=== PATIENT | female | born 1985 | race Caucasian/White ===

== ENCOUNTER 2019-03-08 15:08 | Emergency (ER) | payer BC ==
[2019-03-08 16:18] LABS: Absolute Lymphocytes (CBC) 1.9 K/uL (0.7-4.9); Basophils % 0.7 % (0-1.3); Hematocrit 39.3 % (36.0-45.0); Lymphocytes % 25.4 % (15.3-44.8); MPV 7.6 fL (7.6-11.3); RBC Red Blood Cell Count 4.23 M/uL (3.86-4.86)
--- NOTE | 2019-03-08 16:31 | EKG ---
Test Date: 2019-03-08 Test Time: 15:25:48 Hub Borer: VEGA MEASUREMENT RESULTS: Intervals: Rate: 98 WI: 146 QRSD: 82 QT: 326 QTc: 416 Wainwright: P: 39 WI: 146 QRS: 62 T: 34 INTERPRETIVE STATEMENTS: Normal sinus rhythm normal ECG No previous ECG available for comparison Electronically Signed On 03-08-19 16:31:14 CDT by Nikolas Barksdale
[2019-03-08 16:44] LABS: Protime INR 0.96
[2019-03-08 16:50] LABS: T3 Free 2.61 pg/mL (2.18-3.98); Thyroid Stimulating Hormone 1.75 uIU/mL (0.360-3.740)
[2019-03-08 16:53] LABS: ALT/SGPT 17 U/L (12-78); AST/SGOT 13 U/L (15-37); Albumin 3.8 g/dL (3.4-5.0); Alkaline Phosphatase 64 U/L (45-117); BUN Blood Urea Nitrogen 15 mg/dL (7-18); Bicarbonate 22 mmol/L (21-32); Bilirubin Direct 0.1 mg/dL (0-0.2); Bilirubin Total 0.1 mg/dL (0.2-1.0); Glucose Level 86 mg/dL (74-106); Magnesium 1.9 mg/dL (1.8-2.4); NT PRO-BNP 8 pg/mL (<125); Potassium 3.9 mmol/L (3.5-5.1); Protein, Total 7.3 g/dL (6.4-8.2); Sodium Level 139 mmol/L (136-145); Troponin (Emerg Dept Use Only) < 0.02 ng/mL (0.0-0.045)
--- NOTE | 2019-03-08 16:59 | RAD REPORT ---
EXAM DESCRIPTION: RAD - Chest Single View - 03/08/2019 4:04 pm CLINICAL HISTORY: Chest pain COMPARISON: None. TECHNIQUE: AP portable chest image was obtained 1553 hours . FINDINGS: Lungs are clear. Heart and vasculature are normal. No measurable pleural effusion and no p neumothorax. No acute bony abnormality seen. No acute aortic findings suspected. IMPRESSION: No acute cardiopulmonary process.
[2019-03-08] MEDS ORDERED: ONDANSETRON 4 MG/2 ML VIAL ONE (17:01)
[2019-03-08] MEDS ORDERED: NA CHLORIDE 0.9% 1,000 ML ONE (17:01)
--- NOTE | 2019-03-08 18:04 | ER ---
Nurse's Notes [facility] Name: Cece Clark Age: 33 yrs Sex: Female : 1985 Arrival Date: 03/08/2019 Time: 15:09 Bed 8 Private MD: Shmuel Aleman Diagnosis: Palpitations;Other chest pain Presentation: 03/08 15:22 Presenting complaint: Patient states: Chest pain for the past 2 weeks, while driving it ch struck me out of no where. I feel my heart racing and it seems pounding in my chest. Transition of care: patient was not received from another setting of care. Onset of symptoms was March 08, 2019 at 14:50. Risk Assessment: Do you want to hurt yourself or someone else? Patient reports no desire to harm self or others. Initial Sepsis Screen: Does the patient meet any 2 criteria? No. Patient's initial sepsis screen is negative. Does the patient have a suspected source of infection? No. Patient's initial sepsis screen is negative. Care prior to arrival: None. 15:22 Method Of Arrival: Ambulatory 15:22 Acuity: KARLA 3 Triage Assessment: 15:24 General: Appears in no apparent distress. comfortable, Behavior is cooperative, ch appropriate for age, anxious. Pain: Complains of pain in chest Pain currently is 0 out of 10 on a pain scale. Cardiovascular: Reports lightheadedness, palpitations, shortness of breath. 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 - Social history:: Smoking status: Patient/guardian denies using tobacco, Patient uses alcohol, occasionally. - Ebola Screening: : Patient negative for fever greater than or equal to 101.5 degrees Fahrenheit, and additional compatible Ebola Virus Disease symptoms Patient denies exposure to infectious person Patient denies travel to an Ebola-affected area in the 21 days before illness onset No symptoms or risks identified at this time. Screenin:35 Abuse screen: Denies threats or abuse. Nutritional screening: No deficits noted. aa5 Tuberculosis screening: No symptoms or risk factors identified. Fall Risk None identified. Assessment: 15:32 General: Appears uncomfortable, Behavior is calm, cooperative. Pain: Complains of pain aa5 in mid-sternal area Pain does not radiate. Pain currently is 8 out of 10 on a pain scale. Quality of pain is described as pressure, Pain began 2 weeks ago Is continuous. Neuro: Level of Consciousness is awake, alert, obeys commands, Oriented to person, place, time, situation. Cardiovascular: Reports chest pain, palpitations, Heart tones S1 S2 present Rhythm is regular. Respiratory: Airway is patent Respiratory effort is even, unlabored, Respiratory pattern is regular, symmetrical, Breath sounds are clear bilaterally. Denies cough, shortness of breath. GI: Patient currently denies nausea, vomiting. : No signs and/or symptoms were reported regarding the genitourinary system. EENT: No signs and/or symptoms were reported regarding the EENT system. Derm: Skin is pink, warm \T\ dry. Musculoskeletal: Range of motion: intact in all extremities. 16:30 Reassessment: Patient is alert, oriented x 3, equal unlabored respirations, skin aa5 warm/dry/pink. Patient denies pain at this time. 18:00 Reassessment: Patient is alert, oriented x 3, equal unlabored respirations, skin aa5 warm/dry/pink. Vital Signs: 15:24 BP 128 / 91; Pulse 99; Resp 16; Temp 98.1; Pulse Ox 97% on R/A; Weight 77.11 kg; Height 5 ft. 3 in. (160.02 cm); Pain 0/10; 17:30 BP 120 / 84; Pulse 88; Resp 18 S; Pulse Ox 98% on R/A; Pain 0/10; aa5 15:24 Body Mass Index 30.11 (77.11 kg, 160.02 cm) ED Course: 15:09 Patient arrived in ED. am2 15:10 Shmuel Aleman MD is Private Physician. am2 15:23 Triage completed. 15:24 Arm band placed on left wrist. Patient placed in an exam room, on a stretcher. 15:26 EKG completed in triage. Results shown to MD. 15:30 Radha Schneider, RN is Primary Nurse. aa5 15:31 EKG done, by tomography technologist. reviewed by Andrade Moe MD. 3 15:32 Patient has correct armband on for positive identification. Bed in low position. Call aa5 light in reach. Side rails up X2. 15:32 virology teacher on. Pulse ox on. NIBP on. aa5 15:32 No provider procedures requiring assistance completed. Patient maintains SpO2 aa5 saturation greater than 95% on room air. 15:34 Jimbo Ponce PA is PHCP. cp 15:34 Andrade Moe MD is Attending Physician. cp 15:53 XRAY Chest (1 view) In Process Unspecified. EDMS 17:48 Holter monitor placed. Instructions were given. 3 18:01 Nikolas Barksdale MD is Referral Physician. cp 18:30 IV discontinued, intact, bleeding controlled, No redness/swelling at site. Pressure aa5 dressing applied. Administered Medications: 17:04 Drug: Zofran 4 mg Route: IVP; Site: right antecubital; hb 17:10 Follow up: Response: No adverse reaction aa5 17:05 Drug: NS 0.9% 1000 ml Route: IV; Rate: 1 bolus; Site: right antecubital; hb 18:00 Follow up: IV Status: Completed infusion; IV Intake: 1000ml aa5 Intake: 18:00 IV: 1000ml; Total: 1000ml. aa5 Outcome: 18:03 Discharge ordered by MD. cp 18:30 Discharged to home ambulatory, with significant other. aa5 18:30 Condition: stable 18:30 Discharge instructions given to patient, with Holter monitor Instructed on discharge instructions, follow up and referral plans. Demonstrated understanding of instructions, follow-up care. 18:38 Patient left the ED. aa5 Signatures: Dispatcher [employer] EDMS Rosa Barr RN RN Radha Schneider RN RN aa5 Jimbo Ponce PA PA cp Baxter, Heather, RN RN Naa Rosas am Sonia Valdovinos 3 Corrections: (The following items were deleted from the chart) 17:06 15:32 Cardiovascular: Heart tones S1 S2 present Rhythm is regular aa5 aa5
--- NOTE | 2019-03-08 18:04 | EDPHYS ---
Physician Documentation [facility] Name: Cece Clark Age: 33 yrs Sex: Female : 1985 Arrival Date: 03/08/2019 Time: 15:09 Bed 8 Private MD: Shmuel Aleman ED Physician Andrade Moe HPI: 03/08 15:59 This 33 yrs old Female presents to ER via Ambulatory with complaints of Chest cp Pain. 16:00 The patient or guardian reports chest pain that is located primarily in the anterior cp chest wall. 16:00 The pain radiates to both arms. Associated signs and symptoms: Pertinent positives: cp dizziness, palpitations, shortness of breath, blurry vision today, Pertinent negatives: abdominal pain, cough, lower extremity pain, lower extremity swelling, recent travel, syncope, vomiting. The chest pain is described as sharp. Duration: The patient or guardian reports multiple episodes, that are intermittent, with no pattern. Severity of pain: in the emergency department the pain has improved moderately. 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 - Social history:: Smoking status: Patient/guardian denies using tobacco, Patient uses alcohol, occasionally. - Ebola Screening: : Patient negative for fever greater than or equal to 101.5 degrees Fahrenheit, and additional compatible Ebola Virus Disease symptoms Patient denies exposure to infectious person Patient denies travel to an Ebola-affected area in the 21 days before illness onset No symptoms or risks identified at this time. ROS: 16:00 Eyes: Negative for injury, pain, redness, and discharge. cp 16:00 Constitutional: Negative for body aches, chills, fever, poor PO intake. 16:00 ENT: Negative for drainage from ear(s), ear pain, sore throat, difficulty swallowing, difficulty handling secretions. 16:00 Cardiovascular: Positive for chest pain, palpitations, Negative for edema. 16:00 Respiratory: Positive for shortness of breath, Negative for cough, wheezing. 16:00 Abdomen/GI: Negative for abdominal pain, nausea, vomiting, and diarrhea, constipation, black/tarry stool, rectal bleeding. 16:00 Back: Negative for pain at rest, pain with movement, radiated pain. 16:00 : Negative for urinary symptoms, vaginal bleeding, vaginal discharge. 16:00 Skin: Negative for rash. 16:00 Neuro: Positive for dizziness, Negative for altered mental status, headache, syncope, near syncope, weakness. 16:00 All other systems are negative. Exam: 16:00 ECG was reviewed by the Attending Physician. cp 16:10 Constitutional: The patient appears in no acute distress, alert, awake, comfortable, cp non-diaphoretic, non-toxic, well developed, well nourished. 16:10 Head/Face: Normocephalic, atraumatic. cp 16:10 Eyes: Periorbital structures: appear normal, Conjunctiva: normal, no exudate, no injection, Sclera: no appreciated abnormality, Lids and lashes: appear normal, bilaterally. 16:10 ENT: External ear(s): are unremarkable, Nose: is normal, Mouth: Lips: moist, Oral mucosa: pink and intact, moist, Posterior pharynx: is normal, airway is patent, no erythema, no exudate. 16:10 Chest/axilla: Inspection: normal, Palpation: is normal, no crepitus, no tenderness. 16:10 Cardiovascular: Rate: normal, Rhythm: regular. 16:10 Respiratory: the patient does not display signs of respiratory distress, Respirations: normal, no use of accessory muscles, no retractions, no splinting, no tachypnea, labored breathing, is not present, Breath sounds: are clear throughout, no decreased breath sounds, no stridor, no wheezing. 16:10 Abdomen/GI: Inspection: abdomen appears normal, Bowel sounds: active, all quadrants, Palpation: abdomen is soft and non-tender, in all quadrants, rebound tenderness, is not appreciated, voluntary guarding, is not appreciated, involuntary guarding, is not appreciated. 16:10 Back: pain, is absent, ROM is normal. 16:10 Skin: no rash present. 16:10 Neuro: Orientation: to person, place \T\ time. Mentation: is normal, Cerebellar function: is grossly normal, Motor: moves all fours, strength is normal. Vital Signs: 15:24 BP 128 / 91; Pulse 99; Resp 16; Temp 98.1; Pulse Ox 97% on R/A; Weight 77.11 kg; Height ch 5 ft. 3 in. (160.02 cm); Pain 0/10; 17:30 BP 120 / 84; Pulse 88; Resp 18 S; Pulse Ox 98% on R/A; Pain 0/10; aa5 15:24 Body Mass Index 30.11 (77.11 kg, 160.02 cm) MDM: 15:34 Patient medically screened. cp 16:00 Differential diagnosis: abnormal EKG, acute pericarditis, chest wall pain, cp costochondritis, esophagitis, gastritis, pleurisy, pneumonia, pneumothorax, pulmonary embolus. 18:02 Data reviewed: vital signs, nurses notes, lab test result(s), EKG, radiologic studies, cp plain films. 18:02 Test interpretation: by ED physician or midlevel provider: ECG, plain radiologic cp studies. 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 Response to treatment: the patient's symptoms have markedly improved after treatment, and as a result, I will discharge patient. Special discussion: Based on the patient's history, exam, and Dx evaluation, there is no indication for emergent intervention or inpatient Tx. It is understood by the patient/guardian that if the Sx's persist or worsen they need to return immediately for re-evaluation. 03/08 15:48 Order name: Basic Metabolic Panel; Complete Time: 17:00 cp 03/08 17:00 Interpretation: Normal except: GFR 72. cp 03/08 15:48 Order name: CBC with Diff; Complete Time: 17:00 cp 03/08 15:48 Order name: LFT's; Complete Time: 17:00 cp 03/08 17:01 Interpretation: Normal except: AST 13; BILIT 0.1. cp 03/08 15:48 Order name: Magnesium; Complete Time: 17:00 cp 03/08 15:48 Order name: NT PRO-BNP; Complete Time: 17:00 cp 03/08 15:48 Order name: PT-INR; Complete Time: 17:00 cp 03/08 15:48 Order name: Troponin (emerg Dept Use Only); Complete Time: 17:00 cp 03/08 15:48 Order name: XRAY Chest (1 view); Complete Time: 17:18 cp 03/08 17:18 Interpretation: Report review. 03/08 15:48 Order name: D-Dimer; Complete Time: 17:00 cp 03/08 15:59 Order name: TSH; Complete Time: 17:00 cp 03/08 15:59 Order name: T3 Free; Complete Time: 17:00 cp 03/08 17:58 Order name: Urine Dipstick--Ancillary (enter results) 03/08 17:58 Order name: Urine --Ancillary (enter results) 03/08 15:48 Order name: EKG; Complete Time: 15:49 cp 03/08 15:48 Order name: Cardiac monitoring; Complete Time: 16:05 cp 03/08 15:48 Order name: EKG - Nurse/Tech; Complete Time: 16:05 cp 03/08 15:48 Order name: IV Saline Lock; Complete Time: 16:06 cp 03/08 15:48 Order name: Labs collected and sent; Complete Time: 16:06 cp 03/08 15:48 Order name: O2 Per Protocol; Complete Time: 16:06 cp 03/08 15:48 Order name: O2 Sat Monitoring; Complete Time: 16:06 cp 03/08 15:48 Order name: Urine Dipstick-Ancillary (obtain specimen); Complete Time: 18:32 cp 03/08 15:48 Order name: Urine Test (obtain specimen); Complete Time: 18:32 cp 03/08 17:22 Order name: Holter Monitor (ORDER); Complete Time: 17:22 cp EC:00 Rate is 98 beats/min. Rhythm is regular. PA interval is normal. QRS interval is normal. cp QT interval is normal. Interpreted by me. Reviewed by me. Administered Medications: 17:04 Drug: Zofran 4 mg Route: IVP; Site: right antecubital; hb 17:10 Follow up: Response: No adverse reaction aa5 17:05 Drug: NS 0.9% 1000 ml Route: IV; Rate: 1 bolus; Site: right antecubital; hb 18:00 Follow up: IV Status: Completed infusion; IV Intake: 1000ml aa5 Disposition: 03/09 07:44 Co-signature as Attending Physician, Andrade Moe MD. Disposition: 03/08/19 18:03 Discharged to Home. Impression: Palpitations, Other chest pain. - Condition is Stable. - Discharge Instructions: Nonspecific Chest Pain, Holter Monitoring, Palpitations. - Medication Reconciliation Form, Thank You Letter, Antibiotic Education, Prescription Opioid Use form. - Follow up: Nikolas Barksdale MD; When: 2 - 3 days; Reason: Recheck today's complaints. - Problem is new. - Symptoms have improved. Signatures: Dispatcher [employer] EDRosa Rodriguez RN RN Radha Schneider RN RN aa5 Jimbo Ponce PA PA cp Baxter, Heather, RN RN hb Starr, MD ANTONIO Zafar Corrections: (The following items were deleted from the chart) 03/08 16:42 16:40 ECG was reviewed by the Attending Physician. cp cp 18:38 18:03 03/08/2019 18:03 Discharged to Home. Impression: Palpitations; Other chest pain. aa5 Condition is Stable. Forms are Medication Reconciliation Form, Thank You Letter, Antibiotic Education, Prescription Opioid Use. Follow up: Nikolas Barksdale; When: 2 - 3 days; Reason: Recheck today's complaints. Problem is new. Symptoms have improved. cp
[2019-03-08 18:06] LABS: Urine Blood NEGATIVE (NEG); Urine Glucose NEGATIVE (NEG); Urine Protein NEGATIVE (NEG); Urine pH 5.5 (5.0-7.0)
[2019-03-08 19:30] VITALS: BP 128/91; TEMP 98.1; O2SAT 97
--- NOTE | 2019-03-12 16:42 | HM ---
Indications : Palpitations Diary Notations : Referring MD : Shmuel Heart Medications: Levothyroxine Reading MD : Nikolas Barksdale : Summary Report Test Date : 03/08/19 Start Time : 5:17:24 PM Total Beats : [id number] Hours Analyzed : 23:55:36 Unknown Beats : 0 Scan Date : 03/12/19 Artifact : 0:21:04 Other Beats : 0 Percent AFIB : 0.00% Rate Dependent Events Heart Rates Min : 63 BPM at 6:18:00 AM -2 Bradycardia Runs: 0 Pauses : 0 Max : 124 BPM at 9:43:00 AM -2 Longest : 0 beats at Longest : 0.0 secs Avg : 85 BPM Min rate : 0 BPM at at Ventricular Events Supraventricular Events Total Beats : 0 Couplets : 0 Total Beats : 1 Couplets : 0 Triplets : 0 Bigeminy Runs : 0 VTach Runs : 0 SVTach Runs : 0 Longest : 0 beats at Longest : 0 beats at Max Rate ; 0 BPM Max Rate : 0 BPM at Impressions and Findings 12 Lead ECG: Normal Holter: 24 Hours showed sinus rhythm 63-124 beats per minute with no pauses. There is no ventricular ectopy A single premature atrial complex noted. No ventricular tachycardia, supraventricular tachycardia or atrial fibrillation.
== END 2019-03-08 18:38 | disposition home or self-care (01) ==
LOC: ER 15:08
DX: R00.2 Palpitations (principal); E03.9 Hypothyroidism, unspecified; Z72.0 Tobacco use
CPT/HCPCS: 96361; 93225; 93226; 93005; 85025; 80048; 36415; 83735; 81025; 85610; 85379; 80076; 84443; 81003; 84484; 84481; 83880; 71045; 96374; 99285; J7030; J2405

== ENCOUNTER 2023-06-09 10:13 | Day surgery (SDC) | payer BC ==
[2023-06-07 13:32] LABS: Specific Gravity 1.006 (1.005-1.030); Urine Bacteria <20 /HPF (<20); Urine Bilirubin NEGATIVE (Negative); Urine Blood Negative (Negative); Urine Clarity Clear (Clear); Urine Color Colorless (Yellow); Urine Glucose NEGATIVE (Negative); Urine Protein NEGATIVE (Negative); Urine RBC <5 /HPF (None Seen); Urine Urobilinogen Normal (Normal); Urine pH 6.5 (5.0-7.0)
[2023-06-07 13:33] LABS: Absolute Lymphocytes (CBC) 1.6 K/uL (0.7-4.9); Hematocrit 38.5 % (36.0-45.0); Lymphocytes % 23.4 % (15.3-44.8); Platelets 373 thou/uL (152-406); RBC Red Blood Cell Count 4.32 M/uL (3.86-4.86)
[2023-06-09] MEDS ORDERED: SCOPOLAMINE HYDROBROMIDE PATCH TD ONE ×2 (10:30→10:32)
[2023-06-09] MEDS ORDERED: CEFAZOLIN SODIUM 2 GM/VIAL ONE (10:30)
[2023-06-09] MEDS ORDERED: Ringers Lactate 1,000 ML IV ONE ×2 (10:32→11:55)
[2023-06-09] MEDS ORDERED: FENTANYL CITR 100 MCG/2 ML ONE ×2 (10:43→11:41)
[2023-06-09] MEDS ORDERED: LIDOCAINE 2% MPF 5 ML VIAL ONE (10:43)
[2023-06-09] MEDS ORDERED: MIDAZOLAM HCL 2 MG/2 ML INJ ONE (10:43)
[2023-06-09] MEDS ORDERED: NEOSTIGMINE 1 MG/ML -10 ML VIAL ONE (10:43)
[2023-06-09] MEDS ORDERED: propofoL 200 MG/20 ML VIAL IV ONE (10:43)
[2023-06-09] MEDS ORDERED: ROCURONIUM 50 MG/5 ML VIAL IV ONE (10:43)
[2023-06-09] MEDS ORDERED: GLYCOPYRROLATE 0.2 MG/ML SYR ONE (10:43)
[2023-06-09] MEDS ORDERED: ONDANSETRON 4 MG/2 ML VIAL ONE (10:43)
[2023-06-09] MEDS: BUPIVACAINE 0.25% PF 30 ML VIAL ONE ×2 (11:12→11:38)
[2023-06-09] MEDS ORDERED: METHYLENE BLUE 1% 10 ML VIAL ONE (11:30)
[2023-06-09] MEDS ORDERED: MEPERIDINE HCL 25 MG/ML SYR ONE (12:38)
[2023-06-09] MEDS ORDERED: KETOROLAC 30 MG/ML INJ ONE (12:38)
[2023-06-09] MEDS ORDERED: Mastisol Adhesive Liq ONE (12:38)
[2023-06-09] MEDS ORDERED: HYDROMORPHONE HCL 1 MG/ML INJ ONE (13:00)
[2023-06-09 13:10] VITALS: TEMP 97.1
[2023-06-09] MEDS ORDERED: HYDROCODONE/APAP 5/325 MG TAB ONE (14:00)
[2023-06-09 14:50] VITALS: BP 141/84; O2SAT 99
--- NOTE | 2023-06-10 21:29 | OP ---
Date of Procedure: 06/09/2023 Surgeon: Natividad Macias MD Lead Performance Support Analyst: Poornima Pitt. Preoperative Diagnoses: Menorrhagia (AUB-O), dysmenorrhea, possible endometriosis, and female infert ility. She has one child who is 6 years old. Postoperative Diagnoses: Menorrhagia (AUB-O), dysmenorrhea, no endometriosis, and female infertility . She has one child who is 6 years old. 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 Procedures Performed: Diagnostic laparoscopy, chromotubation, right salpingolysis and catheterizatio n of the tube using an intraoperative cholangiogram catheter. Anesthesia: General endotracheal. Specimens: None. Complications: None. Drains: None. Findings: Uterus anteflexed, the left tube spontaneously filled and spilled, the right tube had dist al tortuous dilation and on chromotubation, there was fill into this area but no spill from the fimbr iated end that was clamped. The occlusion was relieved using scissors and the catheter was able to b e inserted without any problems to at least the mid part of the tube. Patient Condition: Stable. Description Of Procedure: After informed consent was verified, she was taken back to the OR, placed in supine fashion on the operating table. General anesthesia was given. She was placed in a dorsal lithotomy position with arms tucked by the side. Positioning checked. SCDs started. Time-out done. Abdomen prepped with ChloraPrep, vulva, vagina, and perineum with Betadine. Speculum placed to exp ose the cervix. Anterior lip grasped with a single-tooth tenaculum and a uterine manipulator introdu bibiana and fixed in place. The bulb on the manipulator was inflated with air to 10 mL. The occluder wa s placed in a position of the cervix so as to be able to retrograde fill without significant spillage . After Villalpando catheter was inserted, this was attached to wound drainage bag and left to gravity. This area was then draped and laparoscopic part was started. A curvilinear infraumbilical incision was m jessica with a scalpel after injecting 0.25% bupivacaine. Fascia was incised, tagged with 0 Vicryl sutur es. Peritoneum entered sharply. S-retractors were placed after the Darren was introduced and adequa te insufflation was obtained. A 10 mm 30 degree lens was used to enter, checked the point of entry, which was unremarkable. Upper abdominal surface was unremarkable. Her appendix was normal as well. The patient was placed in Trendelenburg position and pelvic organs were examined. No evidence of an y endometriosis. However, distal right tube and distal 1/3rd appeared to have a tortuous appearance suspicious for a hydrosalpinx. A 5 suprapubic and another 5 left lower quadrant ports were placed under direct vision after the anton ent was placed in significant Trendelenburg for my surgery. Chromotubation was the next procedure. Chromotubation was performed through the uterine manipulator canal. One ampule of both methylene robin e diluted with 200 mL of normal saline was injected with a quick fill and spill of the left tube. On the right side, there was a fill into the proximal 2/3rds, but there was no spill from the fimbriate d end. On close examination, there was clubbing here. The fimbriated end was picked up with the help of a M brandenburg centerand grasper and using scissors, the fimbriae were released. Then, I was able to insert a cholang iogram catheter 2/[address] in, that slid in easily. Then, went ahead and repeated the chromotuba tion without much success despite occlusion of the contralateral tubes with no spill on the sides. I suspected spasm of the tube but at this time did not decide to give any glucagon at the c ompletion of the surgery. An HSG 3 months postop would be more meaningful to ensure patency of the t ube. Thorough irrigation, suction were performed. The cholangiogram catheter was removed. Then all the ports were removed under direct vision after there was good hemostasis. The ovaries were comple tely unremarkable. No evidence of any endometriosis on close examination of the entire pelvic perito neum, anterior and posterior cul-de-sacs and broad ligaments and uterosacral ligaments and posterior cul-de-sac. The fascia at the umbilicus was closed after the gas was desufflated, and umbilical trocar was remove d. The fascia was apposed with stay sutures tied to each other. Interrupted 5-0 Monocryl to complet e the closure on all incision sites. Uterine manipulator and Villalpando were removed. Instrument, needle , and sponge counts were correct at the end of the case. The patient tolerated the procedure well. She was recovered from anesthesia and taken to PACU in stable condition. Her was debriefed about her findings. She will have a discussion in the office. Essentially she can try to conceive at this time without any restrictions and do an HSG in 3 months from now. SHONDA Voice ID: [id number] Report ID: [id number]
== END 2023-06-09 14:35 | disposition home or self-care (01) ==
LOC: OR 10:13
PROVIDERS: ATTEND Obstetrics & Gynecology
PROC: 0UN54ZZ Release Right Fallopian Tube, Percutaneous Endoscopic Approach (ICD-10-PCS; 2023-06-09)
PROC: 0UH Female Reproductive System, Insertion (ICD-10-PCS; 2023-06-09)
PROC: 3E1P88Z Irrigation of Female Reproductive using Irrigating Substance, Via Natural or Artificial Opening Endoscopic (ICD-10-PCS; principal; 2023-06-09 11:30)
DX: N92.0 Excessive and frequent menstruation with regular cycle (principal); N94.6 Dysmenorrhea, unspecified; N97.1 Female infertility of tubal origin; E03.9 Hypothyroidism, unspecified; F41.9 Anxiety disorder, unspecified; F32.A Depression, unspecified
CPT/HCPCS: 36415; 81001; 81025; 85025; 86850; 86900; 86901; J1170; J2001; J2175; J2250; J2405; J2704; J2710; J3010; J7120